=== PATIENT | female | born 1955 | race Caucasian/White ===

== ENCOUNTER 2016-08-17 12:27 | Emergency (ER) | payer OTHER ==
[~2016-08-17] VITALS: Ht 170.2 cm; Wt 83.0 kg
[~2016-08-17 12:27] MED LIST: ALLEGRA ALLERG180 MG PO; ASPIR 8181 M1 PO; AUGMENTIN875 MG PO; BIOTIN1000 MICRO PO; FENOFIBRATE160 M1 PO; GABAPENTIN400 MG PO; GABAPENTIN800 MG PO; HUMULIN R500 UNITS/ SC; LISINOPRIL40 MG PO; METOPROLOL TAR100 MG PO; NAPROSYN500 MG PO; NEURONTIN800 MG PO; NEXIUM40 MG PO; NORVASC5 MG PO; PEN-VEE K,VEET500 MG PO; PERCOCET 5/31 TABLET PO; SERTRALINE HCL100 MG PO; TRULICITY0.75 MG/0. SC; VITAMIN D22000 UNIT PO; VITAMIN E100 UNIT PO; VYTORIN 10/41 TABLET PO; XANAX0.25 MG PO; [UNRECOGNIZED DRUG - OTHER] TP
[2016-08-17 13:21] LABS: BASOPHIL COUNT 0.1 K/uL (0-0.1); EOSINOPHIL (%) 0.5 % (0-5); HEMATOCRIT 39.8 % (36.0-46.0); IMMATURE GRANULOCYTE (%) 0.5 % (0.0-0.7); INSTRUMENT ABS NEUTROPHIL CT 5.8 K/uL; LYMPHOCYTE COUNT 1.8 K/uL (1.0-2.8); MCH 31.4 PG (29.0-34.0); MCHC 34.4 G/DL (30.0-36.0); MCV 91.3 FL (83-99); MEAN PLAT.VOLUME 10.5 uM^3 (9.5-12.4); MONOCYTE (%) 6.6 % (3-12); MONOCYTE COUNT 0.5 K/uL (0-0.8); NEUTROPHIL (%) 70.3 % (45-76); NEUTROPHIL COUNT 5.8 K/uL (1.8-6.4); PLATELET COUNT 283 K/uL (156-360); RBC DIS.WIDTH-CV 11.6 % (11.8-14.6); RED BLOOD COUNT 4.36 M/uL (3.80-5.20); WHITE BLOOD COUNT 8.2 K/uL (4.1-10.2)
[2016-08-17 13:22] LABS: CHLORIDE 106 mEq/L (99-109); POTASSIUM 3.9 mEq/L (3.7-5.4); SODIUM 140 mEq/L (136-147)
[2016-08-17 13:24] LABS: GLUCOSE 258 mg/dL (70-99)
[2016-08-17 13:26] LABS: ANION GAP 13 MEQ/L (2-14); TOTAL BILIRUBIN 0.9 mg/dL (0.0-1.0)
[2016-08-17 13:28] LABS: ALKALINE PHOSPHATASE 42 IU/L (3-129); GFR ESTIMATE (CALCULATED) 54 mL/min/
[2016-08-17 13:29] LABS: UREA NITROGEN (BUN) 17 mg/dL (9-23)
[2016-08-17 13:32] LABS: LIPASE 43 U/L (1.0-51.0)
[2016-08-17 15:27] LABS: ADD MIUA? YES; BILIRUBIN NEGATIVE; BLOOD NEGATIVE; COLOR YELLOW ((YELLOW)); GLUCOSE (STRIP) >=500; KETONES 20; LEUKOCYTES NEGATIVE; NITRITE NEGATIVE; PROTEIN (STRIP) 30; SPECIFIC GRAVITY 1.026 (1.000-1.030)
[2016-08-17 15:40] LABS: BACTERIA RARE /HPF; BUDDING YEAST RARE; EPITHELIAL CELLS 2+ /HPF; MUCUS TRACE /LPF; RED BLOOD CELLS 0-5 /HPF (0-5); UCUL ADDED? NO; WHITE BLOOD CELLS 0-5 /HPF (0-5)
[2016-08-17] MEDS ORDERED: ZOFRAN4 MG PO (18:17)
[2016-08-17 18:23] VITALS: BP 158/72
== END 2016-08-17 18:33 | disposition home or self-care (01) ==
LOC: EME 12:27
PROVIDERS: Emergency Medicine
DX: R11.10 Vomiting, unspecified (principal); R19.7 Diarrhea, unspecified; E78.5 Hyperlipidemia, unspecified; I10 Essential (primary) hypertension; E11.9 Type 2 diabetes mellitus without complications; Z79.4 Long term (current) use of insulin; Z79.82 Long term (current) use of aspirin
CPT/HCPCS: 74177; 80053; 81003; 83605; 83690; 85025; 93005; 99281; 99285; J2405

== ENCOUNTER 2016-10-08 10:00 | Day surgery (SDC) | payer OTHER ==
[~2016-10-08] VITALS: Ht 170.2 cm; Wt 80.0 kg
[~2016-10-08 10:00] MED LIST changes: +ANTIVERT12.5 MG PO; +ECHINACEA380 MG PO; -GABAPENTIN400 MG PO; +HUMULIN R500 UNIT/1 SC; +PRESERVISION A1 EAC2 PO; -VITAMIN E100 UNIT PO; +VITAMIN E400 UNIT PO; +ZOFRAN4 MG PO
[2016-10-08] MEDS ORDERED: FERROUS SULFAT325 MG PO (10:35)
[2016-10-08 10:40] LABS: POINT-OF-CARE METER ID UU13113694
[2016-10-08 10:52] VITALS: BP 93/52
[2016-10-08 12:41] LABS: POINT-OF-CARE METER ID UU13113675; POINT-OF-CARE USER ID 515036437
[2016-10-08 13:27] VITALS: BP 113/65
[2016-10-08 14:13] VITALS: BP 112/54
== END 2016-10-08 14:13 | disposition home or self-care (01) ==
LOC: SDC 10:00
PROVIDERS: Ophthalmology
DX: H43.11 Vitreous hemorrhage, right eye (principal); E11.319 Type 2 diabetes mellitus with unspecified diabetic retinopathy without macular edema; F41.9 Anxiety disorder, unspecified; I25.10 Atherosclerotic heart disease of native coronary artery without angina pectoris; I10 Essential (primary) hypertension; E78.2 Mixed hyperlipidemia; Z79.82 Long term (current) use of aspirin; Z79.4 Long term (current) use of insulin
CPT/HCPCS: 82948; J0690; J1100; J2250; J2405; J2795; J3010; J3300

== ENCOUNTER 2017-04-20 13:34 | Emergency (ER) | payer OTHER ==
[~2017-04-20] VITALS: Ht 170.2 cm; Wt 83.8 kg
[~2017-04-20 13:34] MED LIST changes: +FERROUS SULFAT325 MG PO
[2017-04-20 13:55] LABS: HEMATOCRIT 40.8 % (36.0-46.0); HEMOGLOBIN 14.3 G/DL (11.9-15.5); MCH 31.1 PG (29.0-34.0); MCV 88.7 FL (83-99); PLATELET COUNT 158 K/uL (156-360); RBC DIS.WIDTH-CV 12.1 % (11.8-14.6); RBC DIS.WIDTH-SD 39.2 % (39-53); WHITE BLOOD COUNT 5.7 K/uL (4.1-10.2)
[2017-04-20 14:03] LABS: ALBUMIN 3.8 g/dL (3.2-4.8)
[2017-04-20 14:04] LABS: CHLORIDE 99 mEq/L (99-109); POTASSIUM 3.5 mEq/L (3.7-5.4); SODIUM 133 mEq/L (136-147)
[2017-04-20 14:06] LABS: GLUCOSE 270 mg/dL (70-99); TOTAL PROTEIN 6.7 g/dL (6.4-8.3)
[2017-04-20 14:08] LABS: TOTAL BILIRUBIN 0.9 mg/dL (0.0-1.0)
[2017-04-20 14:09] LABS: ALKALINE PHOSPHATASE 90 IU/L (3-129)
[2017-04-20 14:10] LABS: CREATININE 1.1 mg/dL (0.6-1.3); GFR ESTIMATE (CALCULATED) 54 mL/min/
[2017-04-20 14:11] LABS: AST (GOT) 72 IU/L (2-34); UREA NITROGEN (BUN) 17 mg/dL (9-23)
[2017-04-20 14:12] LABS: ALT (GPT) 53 IU/L (3-49)
[2017-04-20 14:13] LABS: LIPASE 29 U/L (1.0-51.0)
[2017-04-20 17:52] LABS: APPEARANCE SL.HAZY ((CLEAR)); BILIRUBIN NEGATIVE; BLOOD NEGATIVE; COLOR YELLOW ((YELLOW)); GLUCOSE (STRIP) 50; KETONES NEGATIVE; LEUKOCYTES TRACE; NITRITE NEGATIVE; PROTEIN (STRIP) 30; UROBILINOGEN 0.2 MG/DL (0.2-1.0)
[2017-04-20 17:55] LABS: BACTERIA RARE /HPF; EPITHELIAL CELLS 2+ /HPF; HYALINE CASTS 0-5 /LPF; MUCUS 1+ /LPF; UCUL ADDED? YES; WHITE BLOOD CELLS 15-20 /HPF (0-5)
[2017-04-20] MEDS ORDERED: KEFLEX500 MG PO (18:13)
[2017-04-20 18:43] VITALS: BP 104/57
[2017-04-20 19:17] LABS: SPECIFIC GRAVITY 1.069 (1.000-1.030)
== END 2017-04-20 19:00 | disposition home or self-care (01) ==
LOC: EME 13:34
DX: N30.90 Cystitis, unspecified without hematuria (principal); R10.31 Right lower quadrant pain; K76.0 Fatty (change of) liver, not elsewhere classified; E11.9 Type 2 diabetes mellitus without complications; Z79.4 Long term (current) use of insulin; E78.5 Hyperlipidemia, unspecified; I10 Essential (primary) hypertension; I25.2 Old myocardial infarction; K21.9 Gastro-esophageal reflux disease without esophagitis; F32.9 Major depressive disorder, single episode, unspecified; F41.9 Anxiety disorder, unspecified; Z95.5 Presence of coronary angioplasty implant and graft
CPT/HCPCS: 74177; 80053; 81003; 83690; 85027; 87086; 99281; 99284; J1885; J2270; J7030

== ENCOUNTER 2017-09-07 21:02 | Inpatient (IN) | payer OTHER ==
[~2017-09-07] VITALS: Ht 170.2 cm; Wt 84.5 kg
[~2017-09-07 21:02] MED LIST changes: +KEFLEX500 MG PO
[2017-09-07 21:35] LABS: BASOPHIL (%) 0.3 % (0-1); EOSINOPHIL (%) 0 % (0-5); HEMATOCRIT 38.8 % (36.0-46.0); HEMOGLOBIN 13.8 G/DL (11.9-15.5); IMMATURE GRANULOCYTE (%) 0.4 % (0.0-0.7); LYMPHOCYTE (%) 10.8 % (15-42); LYMPHOCYTE COUNT 1.5 K/uL (1.0-2.8); MCH 31.5 PG (29.0-34.0); MCHC 35.6 G/DL (30.0-36.0); MCV 88.6 FL (83-99); MONOCYTE (%) 6.2 % (3-12); MONOCYTE COUNT 0.9 K/uL (0-0.8); NEUTROPHIL (%) 82.3 % (45-76); NEUTROPHIL COUNT 11.4 K/uL (1.8-6.4); PLATELET COUNT 149 K/uL (156-360); RBC DIS.WIDTH-CV 12.6 % (11.8-14.6); RBC DIS.WIDTH-SD 41.1 % (39-53); RED BLOOD COUNT 4.38 M/uL (3.80-5.20); WHITE BLOOD COUNT 13.8 K/uL (4.1-10.2)
[2017-09-07 21:37] LABS: CARBON DIOXIDE (BICARBONATE) 27.3 MEQ/L (20-31)
[2017-09-07 21:47] LABS: ALBUMIN 3.9 g/dL (3.2-4.8); CHLORIDE 99 mEq/L (99-109); POTASSIUM 4.3 mEq/L (3.7-5.4); SODIUM 135 mEq/L (136-147)
[2017-09-07 21:49] LABS: GLUCOSE 342 mg/dL (70-99)
[2017-09-07 21:50] LABS: TOTAL PROTEIN 7.4 g/dL (6.4-8.3)
[2017-09-07 21:51] LABS: TOTAL BILIRUBIN 1.4 mg/dL (0.0-1.0)
[2017-09-07 21:52] LABS: SERUM ETHYL ALCOHOL < 10 mg/dL
[2017-09-07 21:53] LABS: ALKALINE PHOSPHATASE 86 IU/L (3-129); GFR ESTIMATE (CALCULATED) > 59 mL/min/
[2017-09-07 21:54] LABS: UREA NITROGEN (BUN) 15 mg/dL (9-23)
[2017-09-07 21:55] LABS: AST (GOT) 33 IU/L (2-34); DIRECT BILIRUBIN 0.5 mg/dL (0.0-0.3)
[2017-09-07 21:57] LABS: ALT (GPT) 30 IU/L (3-49); LIPASE 17 U/L (1.0-51.0)
[2017-09-07 22:25] LABS: TROP-I INTERPRETATION INDETERMINATE; TROPONIN-I 0.37 ng/mL (0.0-0.30)
[2017-09-08 00:23] LABS: APPEARANCE CLEAR ((CLEAR)); BILIRUBIN NEGATIVE; BLOOD NEGATIVE; COLOR YELLOW ((YELLOW)); GLUCOSE (STRIP) >=500; KETONES 5; LEUKOCYTES NEGATIVE; NITRITE NEGATIVE; PROTEIN (STRIP) 30; SPECIFIC GRAVITY 1.031 (1.000-1.030); UCUL ADDED? NO
[2017-09-08 00:31] LABS: AMPHETAMINE NEGATIVE (500 ng/mL); BARBITURATES NEGATIVE (200 ng/mL); BENZODIAZEPINES NEGATIVE (150 ng/mL); BUPRENORPHINE NEGATIVE (10 ng/mL); COCAINE NEGATIVE (150 ng/mL); METHADONE NEGATIVE (200 ng/mL); METHAMPHETAMINE NEGATIVE (500 ng/mL); OPIATES (MORPHINE) PRESUMPTIVE POSITIVE (100 ng/mL); OXYCODONE NEGATIVE (100 ng/mL); PHENCYCLIDINE NEGATIVE (25 ng/mL); PROPOXYPHENE NEGATIVE (300 ng/mL); THC CANNABINOIDS NEGATIVE (50 ng/mL); TRICYCLIC ANTIDEPRESSANTS NEGATIVE (300 ng/mL)
[2017-09-08] MEDS ORDERED: LANTUS 10100 UNITS/ SC (02:37)
[2017-09-08] MEDS ORDERED: LANTUS 3 M100 UNITS1 SC ×2 (02:38→02:39)
[2017-09-08] MEDS ORDERED: HYDROCODON-ACE1 EAC7 PO (02:39)
[2017-09-08 03:13] LABS: HDL CHOLESTEROL 34 MG/DL (Desirable>=50); LDL CHOLESTEROL 113 mg/dL (Desirable<100); NON-HDL CHOLESTEROL 149 mg/dL (Desirable<160); TOTAL CHOLESTEROL 183 mg/dL (Desirable<200); TRIGLYCERIDES 180 MG/DL (Normal: <150)
[2017-09-08 05:03] VITALS: BP 146/83
[2017-09-08 05:44] LABS: HEMATOCRIT 38.2 % (36.0-46.0); MCH 30.8 PG (29.0-34.0); MCV 90.5 FL (83-99); PLATELET COUNT 134 K/uL (156-360); RBC DIS.WIDTH-CV 12.7 % (11.8-14.6); RBC DIS.WIDTH-SD 41.5 % (39-53); RED BLOOD COUNT 4.22 M/uL (3.80-5.20); WHITE BLOOD COUNT 10.7 K/uL (4.1-10.2)
[2017-09-08 05:56] LABS: ALBUMIN 3.5 G/DL (3.2-4.8); ALKALINE PHOSPHATASE 64 IU/L (3-129); ALT (GPT) 23 IU/L (3-49); AST (GOT) 29 IU/L (2-34); CHLORIDE 105 MEQ/L (99-109); CREATININE 0.7 MG/DL (0.6-1.3); GFR ESTIMATE (CALCULATED) > 59 mL/min/; GLUCOSE 294 mg/dL (70-99); POTASSIUM 3.9 MEQ/L (3.7-5.4); SODIUM 136 MEQ/L (136-147); TOTAL PROTEIN 5.9 G/DL (6.4-8.3); UREA NITROGEN (BUN) 14 mg/dL (9-23)
[2017-09-08 06:11] LABS: TROP-I INTERPRETATION INDETERMINATE; TROPONIN-I 0.41 ng/mL (0.0-0.30)
[2017-09-08 08:10] VITALS: BP 127/69
[2017-09-08 09:12] LABS: BENZODIAZEPINES, URINE SCREEN Negative (200 ng/mL)
[2017-09-08 09:53] LABS: HEMOGLOBIN A1c (GLYCOHEMOGLOB) 8.3 % (Below 5.7)
[2017-09-08 11:16] LABS: TROP-I INTERPRETATION INDETERMINATE; TROPONIN-I 0.31 ng/mL (0.0-0.30)
[2017-09-08 15:16] VITALS: BP 161/73
[2017-09-08 19:08] VITALS: BP 140/65
[2017-09-08 23:38] VITALS: BP 123/58
[2017-09-09 03:24] VITALS: BP 121/61
[2017-09-09 05:47] LABS: BASOPHIL (%) 0.6 % (0-1); BASOPHIL COUNT 0.1 K/uL (0-0.1); EOSINOPHIL (%) 0.8 % (0-5); EOSINOPHIL COUNT 0.1 K/uL (0-0.3); HEMATOCRIT 35.7 % (36.0-46.0); HEMOGLOBIN 12.3 G/DL (11.9-15.5); IMMATURE GRANULOCYTE (%) 0.2 % (0.0-0.7); LYMPHOCYTE COUNT 1.7 K/uL (1.0-2.8); MCH 30.6 PG (29.0-34.0); MCHC 34.5 G/DL (30.0-36.0); MCV 88.8 FL (83-99); MONOCYTE COUNT 0.8 K/uL (0-0.8); NEUTROPHIL (%) 69.4 % (45-76); PLATELET COUNT 147 K/uL (156-360); RBC DIS.WIDTH-CV 12.5 % (11.8-14.6); RBC DIS.WIDTH-SD 40.7 % (39-53); RED BLOOD COUNT 4.02 M/uL (3.80-5.20); WHITE BLOOD COUNT 8.6 K/uL (4.1-10.2)
[2017-09-09 06:20] LABS: CHLORIDE 106 MEQ/L (99-109); CREATININE 0.7 MG/DL (0.6-1.3); GFR ESTIMATE (CALCULATED) > 59 mL/min/; POTASSIUM 3.5 MEQ/L (3.7-5.4); SODIUM 139 MEQ/L (136-147); UREA NITROGEN (BUN) 11 mg/dL (9-23)
[2017-09-09 06:22] LABS: GLUCOSE 73 mg/dL (70-99)
[2017-09-09 07:47] VITALS: BP 135/66
[2017-09-09 12:00] VITALS: BP 128/61
[2017-09-09 16:05] VITALS: BP 144/76
[2017-09-09 19:58] VITALS: BP 132/66
[2017-09-09 23:19] VITALS: BP 134/55
[2017-09-10 03:25] VITALS: BP 121/58
[2017-09-10 07:35] VITALS: BP 115/63
[2017-09-10 17:06] VITALS: BP 111/68
[2017-09-11 00:17] VITALS: BP 114/58
[2017-09-11 02:39] LABS: CREATININE 0.7 MG/DL (0.6-1.3); GFR ESTIMATE (CALCULATED) > 59 mL/min/; VANCOMYCIN, TROUGH 34.7 MCG/ML (10-20)
[2017-09-11 07:54] VITALS: BP 121/59
[2017-09-11] MEDS ORDERED: GABAPENTIN400 MG PO (11:56)
[2017-09-11] MEDS ORDERED: DOXYCYCLINE HY100 MG PO (12:08)
== END 2017-09-11 13:44 | disposition home or self-care (01) | DRG 871 ==
LOC: EME → EDBD 21:02 → EME 21:02 → 5SOUTH 09-08 01:26 → EDOF 09-08 01:26 → ENRESERV 09-08 01:31 → 5SOUTH 09-08 04:43
PROVIDERS: Emergency Medicine; Hospitalist
DX: A41.9 Sepsis, unspecified organism (principal); L03.116 Cellulitis of left lower limb; G93.41 Metabolic encephalopathy; I24.8 Other forms of acute ischemic heart disease; E11.65 Type 2 diabetes mellitus with hyperglycemia; S40.211A Abrasion of right shoulder, initial encounter; S90.812A Abrasion, left foot, initial encounter; X83.8XXA Intentional self-harm by other specified means, initial encounter; I10 Essential (primary) hypertension; I25.10 Atherosclerotic heart disease of native coronary artery without angina pectoris; E86.0 Dehydration; E78.5 Hyperlipidemia, unspecified; I25.2 Old myocardial infarction; F32.9 Major depressive disorder, single episode, unspecified; F42.4 Excoriation (skin-picking) disorder; F41.9 Anxiety disorder, unspecified; K21.9 Gastro-esophageal reflux disease without esophagitis; Z95.5 Presence of coronary angioplasty implant and graft; Z82.3 Family history of stroke; Z82.49 Family history of ischemic heart disease and other diseases of the circulatory system; Z83.3 Family history of diabetes mellitus; Z79.4 Long term (current) use of insulin; Z79.82 Long term (current) use of aspirin
CPT/HCPCS: 70450; 70551; 71045; 80047; 80048; 80053; 80061; 80076; 80202; 80306 90; 81003; 82565; 82803; 82948; 83036; 83605; 83690; 84484; 84999; 85025; 85027; 87040; 87641; 92523 GN; 93005; 93880; 93971; 97530 GO; 97530 GP; 99281; 99285; G0480; J0690; J0696; J1644; J1815; J2405; J3370; J7030